=== PATIENT | male | born 1965 ===

== ENCOUNTER 2017-08-04 10:41 | Emergency (ER) | payer MEDICAID ==
[2017-08-04 11:00] VITALS: BP 142/88; PULSE 88; RESP 18; TEMP 98.5; O2SAT 96; BMI 28.1
--- NOTE | 2017-08-04 11:51 | C.PDOC ---
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 Notes applying ice to affected area without improvement. Pt notes he had left knee replacement surgery 1 year ago. Denies fall, injury, change in sensation, skin changes, or fever. Time Seen by Provider: 08/04/17 11:29 Chief Complaint (Nursing): Lower Extremity Problem/Injury History Per: Patient History/Exam Limitations: no limitations Onset/Duration Of Symptoms: Days Current Symptoms Are (Timing): Still Present Recent travel outside of the [place]: No Additional History Per: Patient - Knee Alleviating Factor(s): denies: Ice Therapy Past Medical History Reviewed: Historical Data, Nursing Documentation, Vital Signs Vital Signs: Last Vital Signs Temp 98.5 F 08/04/17 10:55 Pulse 88 08/04/17 10:55 Resp 18 08/04/17 10:55 BP 142/88 08/04/17 10:55 Pulse Ox 96 08/04/17 13:00 Family History: States: Unknown Family Hx - Social History Hx Alcohol Use: No Hx Substance Use: No - Immunization History Hx Tetanus Toxoid Vaccination: No Hx Influenza Vaccination: No Hx Pneumococcal Vaccination: No Review Of Systems Except As Marked, All Systems Reviewed And Found Negative. Constitutional: Negative for: Fever, Chills Musculoskeletal: Positive for: Leg Pain (left knee swelling) Skin: Negative for: Rash, Bruising Neurological: Negative for: Weakness, Numbness Physical Exam - Physical Exam Appears: Non-toxic, No Acute Distress Skin: Normal Color, Warm, Dry, No Other (scar to medial aspect of left knee, no erythema or warmth to left knee) Head: Atraumatic, Normacephalic Eye(s): bilateral: Normal Inspection Extremity: No Normal ROM (limited ROM at left knee joint secondary to pain), Tenderness (left knee), No Calf Tenderness, Capillary Refill (less than 2 seconds), No Deformity, Swelling (moderate swelling and bogginess to left knee) Extremity: Bilateral: Atraumatic, Normal Color And Temperature Neurological/Psych: Oriented x3, Normal Speech, Normal Motor, Normal Sensation Gait: Steady ED Course And Treatment O2 Sat by Pulse Oximetry: 96 (RA) Pulse Ox Interpretation: Normal - Other Rad Left knee x-ray X-Ray: Interpreted by Me, Viewed By Me Interpretation: PROCEDURE: Left Knee Radiographs. HISTORY: Pain. COMPARISON : 04/23/2014. FINDINGS: BONES: There is no acute displaced fracture or bone destruction. Bone alignment is normal. JOINTS: Status post total cemented knee arthroplasty. No evidence of loosening or hardware complications. JOINT EFFUSION: There is a moderate suprapatellar joint effusion. OTHER FINDINGS: None. IMPRESSION: Status post total cemented knee arthroplasty, no evidence of hardware complications. Moderate suprapatellar joint effusion. Progress Note: Left knee x-ray ordered and reviewed. Pt was given Motrin for pain.Knee brace applied by RN. On reassessment, patient is resting comfortably , and is in no acute distress. Patient was instructed to follow up with physician/ortho in 1-2 days for further evaluation. 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 - Scribe Statement The provider has reviewed the documentation as recorded by the Starribliat Cowart All medical record entries made by the Dwain were at my direction and personally dictated by me. I have reviewed the chart and agree that the record accurately reflects my personal performance of the history, physical exam, medical decision making, and the department course for this patient. I have also personally directed, reviewed, and agree with the discharge instructions and disposition.
--- NOTE | 2017-08-04 12:34 | RAD ---
PROCEDURE: Left Knee Radiographs. HISTORY: Pain. COMPARISON: 04/23/2014. FINDINGS: BONES: There is no acute displaced fracture or bone destruction. Bone alignment is normal. JOINTS: Status post total cemented knee arthroplasty. No evidence of loosening or hardware complications. JOINT EFFUSION: There is a moderate suprapatellar joint effusion. OTHER FINDINGS: None. IMPRESSION: Status post total cemented knee arthroplasty, no evidence of hardware complications. Moderate suprapatellar joint effusion.
== END 2017-08-04 12:38 | disposition home or self-care (01) ==
LOC: C.ER 10:41
DX: M25.562 Pain in left knee (principal)